=== PATIENT | female | born 1960 | race Caucasian/White ===

== ENCOUNTER → 2017-02-22 | Outpatient (CLI) | payer OTHER | LOC: FIMAGING 09:18 | PROVIDERS: ATTEND Specialist | DX: Z12.31 Encounter for screening mammogram for malignant neoplasm of breast (principal) | CPT/HCPCS: G0202 ==

== ENCOUNTER 2017-05-15 05:53 | Day surgery (SDC) | payer OTHER ==
--- NOTE | 2017-05-14 21:17 | PDGENHP ---
History and Physical - Chief Complaint Bilateral Hip Pain - History of Present Illness Diagnosis: 1. Bilateral Femoroacetabular Impingement HISTORY OF PRESENT ILLNESS: Kirillis a 57 y.o.~very active female~who I have had the pleasure to consult on today. I have enjoyed meeting her~and her boyfriend, Dimas. ~She has three grown children. 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 Daisy's bilateral buttock pain started July 2008, with no~previous complaints and with some~recalled trauma or injury. ~She states that she "pulled" her hamstrings three times over the course of several weeks. ~The first incident occurred during a boot camp class. ~She states that she was running to catch a football, and planted her left foot with subsequent rotation of her left leg. One week later she slipped on a snowy driveway. ~The third incident was a "slip " on icy ground. ~She denies history of bruising or swelling in her left thigh and buttock after these incidents. ~However, she did participate in PT but states that her left hamstrings region has not been the same since these initial insults. Presentation is of posterior bilateral buttock pain. ~On her left side, the pain also presents at times on her lateral thigh. She complains of some numbness and tingling down the posterior left thigh. ~She complains of pain in the anterior right hip that radiates toward the knee, stopping above the knee. ~ The pain only occasionally interrupts her sleep and the hips do not click and catch on her. Sitting can be a real struggle for her. Kirilldoes~report suffering from lower back pain episodes. Kirillhas~participated in physical therapy and has~tried other conservative measures including dry needling and chiropractic treatments. She~has not~ received sufficient symptomatic improvement. ~She had her right hip and thigh region injected (Pro-Lo) two months ago in three separate locations in the thigh , with noticed improvement in her anterior right hip (but no improvement in her right buttock region). She states that her lifestyle is compromised at this point due to the discomfort and pain she is experiencing, and she clearly states that after living in pain for four years, she "wants her life back". Kirillunderstands that she~has a hip and pelvis problem which should be researched and wishes to get a better understanding of her~hip status, followed by an establishment of a treatment strategy, hoping she~would be able to get back to her~well being active life. History: Past medical history: Lyme's disease (1991) - sees a physician in [place] annually Relevant familial history: None which is relevant Past surgical history: No. Surgery Anesthesia Year Outcome 1 Plantar plate, right foot, digit 2 2012 Fine I have reviewed, verified and agree with the past medical, surgical, family and social history. Current Medications:~currently has no medications in their medication list. ALLERGIES:~is allergic to contrast media; latex; morphine; and penicillins. Objective: Physical Examination: Kirillis 5 feet 2 inches tall and weighs 127 Lbs. Currently, she~walks with a normal~gait. She~has no leg length discrepancy and present with no~signs of joint laxity. She~is fit looking. ~~ Trendelenburg sign is negative and Proprioception is reduced, left~side. Lower spine examination is negative for sciatic or femoral nerve irritation with negative SLR &~femoral stretch tests. Range of motion of the spine is normal~for flexion, extension, and rotations, with no associated pain. SIJs examination is normal with normal~MARSHA in relation and local tenderness. Strength, Sensation and pulses are normal - bilaterally Ankles and knees exams are normal~and no~mal-alignment is evident. Hip ROM (degrees): ER At 90~hip FL IR At 90~hip FL IR Neutral hip ER Neutral hip AB AD FL EX R 45 25 45 35 45 10 125 5 L 55 5 35 45 50 10 125 5 Specific hip and pelvis tests: Quadrant MARSHA Roll Add. Longus R ++ Negative Negative Negative L + Negative Negative Negative Glut. Med ITB Pos. Imp R + and very weak Negative but weak Negative L + and very weak Negative but very weak +++ Squeeze test measured normal Bony Symphysis pubis is pain free to touch while concentric activity of the rectus abdominis, does not~produce pain at its insertion. Ilio Psos specific tests are negative for both hips~~ Greater trochanteric burse is painful (++) on the posterior region of the left thigh/hip Piriformis tests: FAIR is left-sided borderline positive, with local signs of neuritis related to sciatic nerve, and negative on the right-side Thigh circumference is symmetric with no evidence for muscle atrophy on both~ sides. Hamstrings tests are positive for bilateral~functional contraction and positive for bilateral~tendinopathy On a daily basis, the following percentages reflect Daisy's overall total left- sided pain: Piriformis: 20% Gluteus medius: 20% Hamstrings: 60% On the right side, all her pain is in the region of the hamstrings origin Imaging: Radiology studies which I have personally reviewed, analyzed and measured are below: XR: AP of the hip and pelvis: Performed in a good technique Specific measurements show: NSA~ Lat. Cam LCE Lat. Pincer C.Over~sign Act. Depth A.I~% Head~Coverage % Sourcil~Angle ATDmm R N + 26 + ~~12-1230 N N N 6 N L N + 24 - - N N N 8 N [place] Lines are preserved. Marked Pathological signs are seen in the Symphysis Pubis. Marked Pathological signs are seen at the Ischial tuberosity. ~~~~~~~~~~~~~ Pos. wall sign Sup. Lat. OA Joint Space-WBZ Joint Space-Medial SALT R Negative Negative 6.2 mm 4.8 mm 6 mm P/A distance N/A L Negative Negative 6.1 mm 4.2 mm 6.7 mm P/A distance 8.9 mm Sclerosis ~~Dysplasia Cysts ISS R Negative Negative Negative Negative L Negative Negative Negative Negative X Table lateral: Anterior cam lesion is seen~bilaterally MRI shows: chronic, degenerative tear proximal hamstrings bilateral (L>>R) and evidence of bilateral Cam Impression and plan: Kirillis a 57 y.o.~active female~suffering from symptomatic left buttock pain due to chronic hamstrings tendinopathy and avulsion, causing significant disability to her~and altering her~sport and life activities. ~Physical examination, imaging, and her~story correspond with the diagnosis mentioned above. ~She also is suffering from left sided glut med/min tendinopathy with associated weakness as well as right buttock pain due to chronic hamstrings tendinopathy with partial avulsion. I have explained the diagnosie and their significance to Kirilland we have discussed the various possible treatment options and their implications with her. ~Regarding the complaints on her left side: ~These include proceeding with conservative treatment while continuing to modify her~activities to avoid aggravating the region further, resuming anti pain medications or injections ( when needed) which can give temporary relief and an open surgery aiming to address the above pathology. ~We may consider addressing the hamstrings and glut pathologies during the same anesthetic event. ~She understands that these procedures require 6 weeks of non weight-bearing immediately post-operatively in order to protect the surgical repairs. ~Additionally, we recommend that she pursue an US-guided piriformis injection for both diagnostic and therapeutic purposes. ~This injection will help us differentiate the extent to which her piriformis and sciatic nerve are involved in her overall symptomatology. ~ With regard to her right buttock pain: These include proceeding with conservative treatment while continuing to modify her activities to avoid aggravating the region further, resuming anti pain medications or injections ( when needed) which can give temporary relief and an open surgery aiming to address the above pathology. We also will place an order today for CT pelvis with 3-dimensional reconstruction in order to complete our comprehensive evaluation. Kirillwill review the info presented and decide how she would like to proceed. ~~Should she decide to proceed with surgical repair of both left and right lower extremities, she understands that she will need to wait 10-12 weeks between operations on each laterality. Of note, Dr Sevilla is operating on her shoulder in May. ~She states that she is planning on proceeding with this operation first, as she states that she is not confident her shoulder is strong enough to withstand use of crutches, ( necessary for post op rehab program for both left and right sided lower extremity surgeries.) Daisy~is happy with this plan. ~She understands that until the lower extremity surgeries she can continue to exercise as tolerated, and we advised her that pool-walking, controlled gym workouts, and low-impact hiking are reasonable activity choices. I wish DaisyJamilall the best, ~~ PAZ Caal MD History Information - Allergies/Home Medication List Allergies/Adverse Reactions: Iodinated Contrast- Oral and IV Dye Allergy (Severe, Verified 02/19/14 20:13) Hives latex [Latex] Allergy (Severe, Verified 02/19/14 20:13) Hives morphine Allergy (Severe, Verified 04/13/17 16:26) Other-Enter Comments Penicillins Allergy (Severe, Verified 02/19/14 20:13) Swelling/neck,face,throat yellow jackets Allergy (Severe, Uncoded 04/13/17 16:26) Other-Enter Comments Home Medications: Naproxen 05/26/13 [Last Taken Unknown] Estradiol [Estrogel] 02/19/14 [Last Taken Unknown] I have personally reviewed and updated: medical history - Social History Smoking Status: Never smoked Review of Systems Review of Systems: Physical Exam Physical Exam:
[2017-05-15] MEDS ORDERED: PREGABALIN 150 MG CAP PO ONE (06:07)
[2017-05-15] MEDS ORDERED: ACETAMINOPHEN 500 MG TAB PO ONE (06:07)
[2017-05-15] MEDS ORDERED: CLINDAMYCIN 900 MG/DEXTROSE 50 ML IV ONE (06:07)
[2017-05-15] MEDS ORDERED: LR 1,000 ML IV ONE (06:08)
[2017-05-15] MEDS ORDERED: LIDOCAINE 1% 2 ML INJ ID PRN (06:08)
[2017-05-15 06:21] VITALS: PULSE 55
--- NOTE | 2017-05-15 07:10 | PDANEPAE ---
ANE Past Medical History - Cardiovascular History Hx Hypertension: No Hx Arrhythmias: No Hx Chest Pain: No Hx Coronary Artery / Peripheral Vascular Disease: No Hx CHF / Valvular Disease: No Hx Palpitations: No - Pulmonary History Hx COPD: No Hx Asthma/Reactive Airway Disease: No Hx Recent Upper Respiratory Infection: No Hx Oxygen in Use at Home: No Hx Sleep Apnea: No Sleep Apnea Screening Result - Last Documented: Negative - Neurologic History Hx Cerebrovascular Accident: No Hx Seizures: No Hx Dementia: No - Endocrine History Hx Diabetes: No Hypothyroid: No Hyperthyroid: No Obesity: no - Renal History Hx Renal Disorders: No - Liver History Hx Hepatic Disorders: No - Neurological & Psychiatric Hx Hx Neurological and Psychiatric Disorders: Yes Neurological / Psychiatric History Comment: lyme disease - Cancer History Hx Cancer: No - Congenital Disorder History Hx Congenital Disorders: No - GI History Hx Gastrointestinal Disorders: No - Other Health History Other Health History: Lyme disease. tooth implant - Chronic Pain History Chronic Pain: Yes (RIGHT BUTTOCK) - Surgical History Prior Surgeries: CANNOT REMEMBER 7 PROCEDURES LAST YEAR ANE Review of Systems Review of Systems: - Exercise capacity METS (RN): 4 METS ANE Patient History - Allergies Allergies/Adverse Reactions: Iodinated Contrast- Oral and IV Dye Allergy (Severe, Verified 02/19/14 20:13) Hives latex [Latex] Allergy (Severe, Verified 02/19/14 20:13) Hives morphine Allergy (Severe, Verified 04/13/17 16:26) Other-Enter Comments Penicillins Allergy (Severe, Verified 02/19/14 20:13) Swelling/neck,face,throat yellow jackets Allergy (Severe, Uncoded 04/13/17 16:26) Other-Enter Comments - Home Medications Home Medications: Naproxen 05/26/13 [Last Taken Unknown] Estradiol [Estrogel] 02/19/14 [Last Taken Unknown] - NPO status NPO Since - Liquids (Date): 05/14/17 NPO Since - Liquids (Time): 23:00 NPO Since - Solids (Date): 05/14/17 NPO Since - Solids (Time): 22:00 - Smoking Hx Smoking Status: Never smoked - Family Anes Hx Family Hx Anesthesia Complications: none ANE Labs/Vital Signs - Vital Signs Blood Pressure: 125/55 Heart Rate: 55 Respiratory Rate: 18 O2 Sat (%): 94 Height: 157.48 cm Weight: 57.153 kg ANE Physical Exam - Airway Neck exam: FROM Mallampati Score: Class 1 Mouth exam: normal dental/mouth exam - Pulmonary Pulmonary: no respiratory distress - Cardiovascular Cardiovascular: regular rate and rhythym - ASA Status ASA Status: I ANE Anesthesia Plan Anesthesia Plan: general endotracheal anesthesia
[2017-05-15] MEDS ORDERED: PROPOFOL/EMULSION 500 MG/50 ML BOTTLE IV ONE ×4 (07:21→11:31)
[2017-05-15] MEDS ORDERED: fentaNYL 250 MCG/5 ML INJ ONE (07:22)
[2017-05-15] MEDS ORDERED: REMIFENTANIL HCL 1 MG VIAL ONE ×2 (07:22)
[2017-05-15] MEDS ORDERED: BUPIVACAINE/EPI 0.5% 30 ML SDV ONE ×2 (07:56→08:38)
[2017-05-15] MEDS ORDERED: BUPIVACAINE 0.5% 30 ML SDV ONE (07:56)
[2017-05-15] MEDS ORDERED: EPINEPHrine 30 MG/30 ML MDV (0.1 MG/0.1 ML) ONE (07:56)
[2017-05-15] MEDS ORDERED: MIDAZOLAM 2 MG/2 ML VIAL ONE (08:17)
[2017-05-15] MEDS ORDERED: PROPOFOL 200 MG/20 ML VIAL ONE (10:24)
[2017-05-15] MEDS ORDERED: LIDOCAINE 2% 5 ML SDV ONE (11:40)
[2017-05-15] MEDS ORDERED: ONDANSETRON 4 MG/2 ML VIAL ONE (11:40)
[2017-05-15] MEDS ORDERED: ROCURONIUM 50 MG/5 ML VIAL ONE (11:40)
[2017-05-15] MEDS ORDERED: DEXAMETHASONE 4 MG/ML VIAL ONE (11:40)
[2017-05-15] MEDS ORDERED: fentaNYL 100 MCG/2 ML INJ ONE ×2 (13:25→14:02)
[2017-05-15] MEDS ORDERED: fentaNYL 100 MCG/2 ML INJ IVP PRN (13:51)
[2017-05-15] MEDS ORDERED: LABETALOL HCL 5 MG/ML 20 ML MDV IVP PRN (13:51)
[2017-05-15] MEDS ORDERED: NALOXONE HCL 0.4 MG/ML INJ IVP PRN (13:51)
[2017-05-15] MEDS ORDERED: PROMETHAZINE HCL 25 MG/ML INJ IVP PRN (13:51)
[2017-05-15] MEDS ORDERED: LR 500 ML IV PRN (13:51)
--- NOTE | 2017-05-15 13:52 | POSTANESTH ---
Post Anesthetic Evaluation Cardiovascular Status: Normal, Stable Respiratory Status: Normal, Stable Level of Consciousness/Mental Status: Can Participate in Eval Pain Control: Adequate, Prn Tx Ordered Nausea/Vomiting Control: Adequate, Prn Tx Ordered Complications Possibly Related to Anesthesia: None Noted
[2017-05-15] MEDS: HYDROmorphONE/DILAUDID 1 MG/ML INJ IVP PRN ×4 (14:10→16:08)
[2017-05-15] MEDS ORDERED: HYDROmorphONE/DILAUDID 1 MG/ML INJ ONE ×2 (14:19→15:56)
[2017-05-15 15:11] VITALS: TEMP 97.2
[2017-05-15] MEDS ORDERED: HYDROmorphONE/DILAUDID 2 MG/ML INJ ONE (15:49)
[2017-05-15] MEDS ORDERED: PROMETHAZINE HCL 25 MG TAB ONE (15:49)
[2017-05-15] MEDS ORDERED: PROMETHAZINE HCL 25 MG/ML INJ ONE (15:54)
[2017-05-15] MEDS ORDERED: OXYCODONE/APAP 5/325 TAB PO PRN (16:37)
[2017-05-15 17:28] VITALS: BP 155/59; RESP 12; O2SAT 99
== END 2017-05-15 19:30 | disposition home or self-care (01) ==
LOC: FSGY 05:53
PROVIDERS: ATTEND Orthopaedic Surgery Sports Medicine
PROC: 0SBB4ZZ Excision of Left Hip Joint, Percutaneous Endoscopic Approach (ICD-10-PCS; principal; 2017-05-15 07:15)
PROC: 0SQB4ZZ Repair Left Hip Joint, Percutaneous Endoscopic Approach (ICD-10-PCS; principal; 2017-05-15 07:15)
PROC: 0SQ94ZZ Repair Right Hip Joint, Percutaneous Endoscopic Approach (ICD-10-PCS; principal; 2017-05-15 07:15)
PROC: 0SB94ZZ Excision of Right Hip Joint, Percutaneous Endoscopic Approach (ICD-10-PCS; principal; 2017-05-15 07:15)
DX: S73.192A Other sprain of left hip, initial encounter (principal); S73.191A Other sprain of right hip, initial encounter; M25.852 Other specified joint disorders, left hip; M25.851 Other specified joint disorders, right hip; M16.0 Bilateral primary osteoarthritis of hip; X50.9XXA Other and unspecified overexertion or strenuous movements or postures, initial encounter; Z88.0 Allergy status to penicillin; Z91.040 Latex allergy status; Z91.041 Radiographic dye allergy status
CPT/HCPCS: C1713; J0171; J1100; J1170; J2250; J2405; J2550; J2704; J3010